=== PATIENT | male | born 1965 | race Caucasian/White ===

== ENCOUNTER 2017-10-18 14:20 | Inpatient (IN) | payer OTHER ==
[~2017-10-18] VITALS: Ht 182.9 cm; Wt 98.0 kg
[2017-10-18] VITALS (8 sets, daily range): BP systolic 111–156; BP diastolic 68–94; PULSE 56–81; RESP 16–18; TEMP 97.7–98.3; O2SAT 57–99
[~2017-10-18 14:20] MED LIST: AMBI10TA PO; ASPI81 PO; RIVA20 PO
[2017-10-18] MEDS ORDERED: IOHEXOL 350 MG/ML 10 ML VIAL (for RAD DIAG) IVCONTRAST ONE (14:21)
--- NOTE | 2017-10-18 14:50 | PD ---
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 TODAY AFTER DOING HIS NORMAL 4.5MILE RUN IN AM, HE STARTED TO FEEL PRESSURE OVER LEFT CHEST RADIATED OVER TO LUE, 7/10 INITIALLY THOUGH NOW HE IS PAIN FREE. NO AGGRAVATING /ALLEVIATING FACTORS. PCP:CAR CARDIO:MAYCO PMHX:AFLUTTER S/P ABLATION IN AUG, AFIB S/P ABLATION IN Sep..OFF XARELTO SINCE THIS PROCEDURE IN 2011. HYPERCHOL PSHX; COLON RESECTION FOR DIVERTICULITIS PFSH Past Medical History Cancer: No Cardiovascular Problems: Yes (A-FIB, A-FLUTTER) Chest Pain: No Diabetes: No Diverticulitis: Yes Endocrine: No Gastrointestinal Disorders: No Glaucoma: No Genitourinary: No Hepatitis: No Hiatal Hernia: No Hypertension: No Immune Disorder: No Musculoskeletal: Yes (HX GOUT) Neurologic: Yes (HX [place] PALSY) Psychiatric: No Reproductive: No Respiratory: No Integumentary: No Thyroid Disease: No Past Surgical History Genitourinary Surgery: Yes (VASECTOMY) Oral Surgery: Yes (WISDOM TEETH EXTRACT.) Pacemaker: No Thoracic Surgery: No Other Surgery: Yes (VASECTOMY IN 1999) Social History Alcohol Use: No Tobacco Use: No Substance Use: No Allergies-Medications (Allergen,Severity, Reaction): Coded Allergies: No Known Allergies (Verified , 10/06/12) Reported Meds & Prescriptions Reported Meds & Active Scripts Active Reported Imodium A-D (Loperamide HCl) 2 Mg Capsule 2 Mg PO Q6H PRN Claritin (Loratadine) 10 Mg Cap 10 Mg PO DAILY Flonase Nasal [place] (Fluticasone Nasal [place]) 50 Mcg/Act [place] 50 Mcg EACH NARE BID Aspirin 325 Mg Tab 325 Mg PO DAILY Review of Systems Except as stated in HPI: all other systems reviewed are Neg General / Constitutional: No: Fever Eyes: No: Visual changes HENT: No: Headaches Cardiovascular: Positive: Chest Pain or Discomfort Respiratory: No: Shortness of Breath Gastrointestinal: No: Abdominal Pain Genitourinary: No: Dysuria Musculoskeletal: No: Pain Skin: No Rash Neurologic: No: Weakness Psychiatric: No: Depression Endocrine: No: Polydipsia Hematologic/Lymphatic: No: Easy Bruising Physical Exam Narrative GENERAL: SKIN: Warm and dry. HEAD: Atraumatic. Normocephalic. EYES: Pupils equal and round. No scleral icterus. No injection or drainage. ENT: No nasal bleeding or discharge. Mucous membranes pink and moist. NECK: Trachea midline. No JVD. CARDIOVASCULAR: Regular rate and rhythm. RESPIRATORY: No accessory muscle use. Clear to auscultation. Breath sounds equal bilaterally. GASTROINTESTINAL: Abdomen soft, non-tender, nondistended. MUSCULOSKELETAL: Extremities without clubbing, cyanosis, or edema. No obvious deformities. NEUROLOGICAL: Awake and alert. No obvious cranial nerve deficits. Motor grossly within normal limits. Five out of 5 muscle strength in the arms and legs. Normal speech. PSYCHIATRIC: Appropriate mood and affect; insight and judgment normal. Data Data Last Documented VS Vital Signs Date Time Temp Pulse Resp B/P (MAP) Pulse Ox O2 Delivery O2 Flow Rate FiO2 10/18/17 15:01 99 18 97 Room Air 10/18/17 14:59 147/86 (106) 156/92 (113) 10/18/17 14:22 97.7 Orders Orders Electrocardiogram (10/18/17 14:46) B-Type Natriuretic Peptide (10/18/17 14:46) Ckmb (Isoenzyme) Profile (10/18/17 14:46) Complete Blood Count With Diff (10/18/17 14:46) Comprehensive Metabolic Panel (10/18/17 14:46) D-Dimer (10/18/17 14:46) Prothrombin Time / Inr (Pt) (10/18/17 14:46) Act Partial Throm Time (Ptt) (10/18/17 14:46) Troponin I (10/18/17 14:46) Lipase (10/18/17 14:46) Chest, Single Ap (10/18/17 14:46) Ecg Monitoring (10/18/17 14:46) Bilateral Bp Monitoring (10/18/17 14:46) Iv Access Insert/Monitor (10/18/17 14:46) Oximetry (10/18/17 14:46) Oxygen Administration (10/18/17 14:46) Ct Pulmonary Angiogram (10/18/17 15:46) CKMB (10/18/17 14:53) CKMB% (10/18/17 14:53) Aspirin Chew (Aspirin Chew) (10/18/17 16:00) Nitroglycerin 2% Oint (Nitroglycerin 2% (10/18/17 16:00) Enoxaparin Inj (Lovenox Inj) (10/18/17 16:00) Iohexol 350 Inj (Omnipaque 350 Inj) (10/18/17 14:21) Admit Order (Ed Use Only) (10/18/17 16:21) Admit To Inpatient (10/18/17 ) Code Status (10/18/17 16:19) Vital Signs (Adult) Q4H (10/18/17 16:19) Activity Bed Rest With Brp (10/18/17 ) Tooth Clerk / Telemetry NATHAN.Q8H (10/18/17 16:19) Notify Dr: Other (10/18/17 ) D5-1/2 Ns + Kcl 20 Meq Inj (D5-1/2 Ns + (10/18/17 18:00) Sodium Chloride 0.9% Flush (Ns Flush) (10/18/17 21:00) Sodium Chloride 0.9% Flush (Ns Flush) (10/18/17 16:30) Aspirin (Aspirin) (10/19/17 09:00) Nitroglycerin Sl (Nitrostat Sl) (10/18/17 16:30) Acetaminophen (Tylenol) (10/18/17 16:30) Alprazolam (Xanax) (10/18/17 16:30) Creatine Kinase (Cpk) (10/18/17 16:19) Creatine Kinase (Cpk) (10/18/17 22:19) Troponin I (10/18/17 16:19) Troponin I (10/18/17 22:19) Magnesium (Mg) (10/18/17 16:19) Basic Metabolic Panel (Bmp) (10/19/17 06:00) Complete Blood Count With Diff (10/19/17 06:00) Act Partial Throm Time (Ptt) (10/18/17 16:19) Lipid Profile (10/19/17 06:00) Echo 2d Comp With Doppler (10/18/17 16:19) Scd Bilateral/Knee High NATHAN.BID (10/18/17 16:19) Inpatient Certification (10/18/17 ) Labs Laboratory Tests Test 10/18/17 14:53 White Blood Count 6.4 TH/MM3 Red Blood Count 4.13 MIL/MM3 Hemoglobin 13.4 GM/DL Hematocrit 39.6 % Mean Corpuscular Volume 95.8 FL Mean Corpuscular Hemoglobin 32.4 PG Mean Corpuscular Hemoglobin Concent 33.8 % Red Cell Distribution Width 13.6 % Platelet Count 188 TH/MM3 Mean Platelet Volume 7.8 FL Neutrophils (%) (Auto) 50.3 % Lymphocytes (%) (Auto) 38.4 % Monocytes (%) (Auto) 9.8 % Eosinophils (%) (Auto) 0.9 % Basophils (%) (Auto) 0.6 % Neutrophils # (Auto) 3.2 TH/MM3 Lymphocytes # (Auto) 2.4 TH/MM3 Monocytes # (Auto) 0.6 TH/MM3 Eosinophils # (Auto) 0.1 TH/MM3 Basophils # (Auto) 0.0 TH/MM3 CBC Comment DIFF FINAL Differential Comment Prothrombin Time 11.1 SEC Prothromb Time International Ratio 1.0 RATIO Activated Partial Thromboplast Time 24.3 SEC D-Dimer Quantitative (PE/DVT) 1.53 MG/L FEU Blood Urea Nitrogen 17 MG/DL Creatinine 0.95 MG/DL Random Glucose 107 MG/DL Total Protein 7.2 GM/DL Albumin 3.8 GM/DL Calcium Level 8.9 MG/DL Alkaline Phosphatase 68 U/L Aspartate Amino Transf (AST/SGOT) 23 U/L Alanine Aminotransferase (ALT/SGPT) 26 U/L Total Bilirubin 0.5 MG/DL Sodium Level 142 MEQ/L Potassium Level 4.6 MEQ/L Chloride Level 107 MEQ/L Carbon Dioxide Level 26.3 MEQ/L Anion Gap 9 MEQ/L Estimat Glomerular Filtration Rate 84 ML/MIN Total Creatine Kinase 248 U/L Creatine Kinase MB 2.8 NG/ML Troponin I 0.17 NG/ML Lipase 294 U/L MDM Medical Decision Making Medical Screen Exam Complete: Yes Emergency Medical Condition: Yes Medical Record Reviewed: Yes Interpretation(s) NSR, 72, NL INERVALS , NONSPEC T WAVE CHANGES, NO STEMI PATTERN Differential Diagnosis STEMI V NONSTEMI V ATYPICAL CP V PNA/PTX V PE Narrative Course OTHERWISE HEALTHY AND WELL FOLLOWED PATIENT BY [employer] LEAKAGE TESTER AND PCP. PATIENT PRESENTED 8 HOURS POST SYMPTOMS SO PLAN ON DOING SERIAL EKG/TROPONIN/CKMB STUDIES X2 IF BOTH NEG I BELIEVE PATIENT IS SAFE ENOUGH TO DISCHARGE AND ENCOURAGE OUTPATIENT RISK STRATIFICATION BY HIS [employer] LEAKAGE TESTER..........AT 1615 PATIENT TROPONIN 0.17 ELEVATED, WELL D DIMER ELEVATION, CT CHEST IS NEG FOR AAA, DISSECTION, PE, OR PERICARDIAL EFFUSION. PATIENT WAS ADMITTED TO DR YENI MCCAULEY. Critical Care Narrative CRITICAL CARE NOTE: With evaluation of the patient, labs, EKG, receipt of radiologic studies, administration of medications, reevaluation the patient and discussion of the patient with the admitting physicians, the total critical care time was [30] minutes. Time to perform other separately billable procedures was not included in the critical care time. Physician Communication Physician Communication DISCUSSED AT LENGTH WITH DR WILLOW JASON [facility] [employer] DIS[employer]AL LEAKAGE TESTER WHO AGREED WITH ASA/ NTG/LOVENOX TREATMENT AND HAS NO FURTHER RECOMMENDATIONS Diagnosis Primary Impression: NONSTEMI Admitting Information Admitting Physician Requests: Admit Phuc Wolff MD Oct 18, 2017 14:50
[2017-10-18] MEDS ORDERED: CLAR10CA3 PO (14:59)
[2017-10-18] MEDS ORDERED: FLUT1SPR5 EACH NARE (14:59)
[2017-10-18] MEDS ORDERED: ASPI-183 PO (14:59)
[2017-10-18] MEDS ORDERED: LOPE-1 PO (14:59)
[2017-10-18 15:28] LABS: AUTOMATED NEUTROPHIL # 3.2 TH/MM3 (1.8-7.7); BASOPHIL % 0.6 % (0.0-2.0); EOSINOPHIL # 0.1 TH/MM3 (0-0.4); EOSINOPHIL % 0.9 % (0.0-4.0); HEMATOCRIT 39.6 % (39.0-51.0); HEMO FLAGS DIFF FINAL; LYMPH % 38.4 % (9.0-44.0); LYMPHOCYTE # 2.4 TH/MM3 (1.0-4.8); MEAN CELL VOLUME 95.8 FL (80.0-100.0); MEAN CORPUSCULAR HEMOGLOBIN 32.4 PG (27.0-34.0); MEAN CORPUSCULAR HGB CONC 33.8 % (32.0-36.0); MONO % 9.8 % (0.0-8.0); NEUT % 50.3 % (16.0-70.0); PLATELET COUNT 188 TH/MM3 (150-450); RED BLOOD COUNT 4.13 MIL/MM3 (4.50-5.90); RED CELL DISTRIBUTION WIDTH 13.6 % (11.6-17.2); WHITE BLOOD COUNT 6.4 TH/MM3 (4.0-11.0)
--- NOTE | 2017-10-18 15:34 | RADRPT ---
EXAM DATE/TIME: 10/18/2017 14:52 [facility] COMPARISON: No previous studies available for comparison. INDICATIONS : Chest pain. MEDICAL HISTORY : a/fib SURGICAL HISTORY : ablation ENCOUNTER: Initial ACUITY: 1 day PAIN SCORE: 2/10 LOCATION: mid sternum FINDINGS: A single view of the chest demonstrates the lungs to be symmetrically aerated without evidence of mas s, infiltrate or effusion. The cardiomediastinal contours are unremarkable. Osseous structures are intact. CONCLUSION: 1. No acute cardiopulmonary disease. Tejinder Locke MD on October 18, 2017 at 15:32 Board Certified Radiologist. This report was verified electronically.
[2017-10-18 15:38] LABS: APTT (PATIENT) 24.3 SEC (24.3-30.1); PROTHROMBIN TIME - PATIENT 11.1 SEC (9.8-11.6)
[2017-10-18 15:42] LABS: ALT (GPT) 26 U/L (12-78); ANION GAP 9 MEQ/L (5-15); AST (GOT) 23 U/L (15-37); BICARBONATE 26.3 MEQ/L (21.0-32.0); BLOOD UREA NITROGEN 17 MG/DL (7-18); CHLORIDE 107 MEQ/L (98-107); GLOMERULAR FILTRATION RATE 84 ML/MIN (>89); POTASSIUM 4.6 MEQ/L (3.5-5.1); SODIUM (NA) 142 MEQ/L (136-145)
[2017-10-18 15:46] LABS: ALKALINE PHOSPHATASE 68 U/L (45-117); CREATINE KINASE 248 U/L (39-308); TOTAL BILIRUBIN ADULT 0.5 MG/DL (0.2-1.0)
[2017-10-18 15:59] LABS: CKMB 2.8 NG/ML (0.5-3.6)
[2017-10-18] MEDS ORDERED: ENOXAPARIN SODIUM 80 MG/0.8 ML SYRINGE SQ ONE (16:00)
[2017-10-18] MEDS ORDERED: NITROGLYCERIN 2% OINT 1 GM PACKET TOP ONE (16:00)
[2017-10-18] MEDS ORDERED: ASPIRIN 81 MG CHEW TAB PO ONE (16:00)
--- NOTE | 2017-10-18 16:23 | RADRPT ---
EXAM DATE/TIME: 10/18/2017 16:06 [facility] COMPARISON: No previous studies available for comparison. INDICATIONS : Patient complains of pressure in chest radiating into left upper extremity. IV CONTRAST: 75 cc Omnipaque 350 (iohexol) IV RADIATION DOSE: 23.11 CTDIvol (mGy) MEDICAL HISTORY : Cardiovascular disease. Diverticulitis. [place] Palsy SURGICAL HISTORY : partial colon removed ENCOUNTER: Initial ACUITY: 1 day PAIN SCALE: 0/10 LOCATION: Left chest TECHNIQUE: Volumetric scanning of the chest was performed using a pulmonary embolism protocol MIP images were re constructed. Using automated exposure control and adjustment of the mA and/or kV according to patien t size, radiation dose was kept as low as reasonably achievable to obtain optimal diagnostic quality images. DICOM format image data is available electronically for review and comparison. Follow-up recommendations for detected pulmonary nodules are based at a minimum on nodule size and pa tient risk factors according to Fleischner Society Guidelines. FINDINGS: PULMONARY ARTERIES: No filling defects are seen in the pulmonary arteries through the segmental level. LUNGS: There is no consolidation or pneumothorax . No concerning pulmonary nodule is visualized. PLEURAE: There is no pleural thickening or pleural effusion. MEDIASTINUM: There is good visualization of the great vessels of the middle mediastinum. No evidence of mediastin al or hilar adenopathy/mass. MUSCULOSKELETAL: There are degenerative changes of the thoracic spine. MISCELLANEOUS: The visualized upper abdominal organs demonstrate no acute abnormality. CONCLUSION: No PE is identified. Additionally, no acute finding is identified to explain the clinical symptoms. Ernesto Andrews MD on October 18, 2017 at 16:19 Board Certified Radiologist. This report was verified electronically.
[2017-10-18] MEDS ORDERED: ALPRAZolam 0.25 MG TAB PO PRN (16:30)
[2017-10-18] MEDS ORDERED: HEPARIN-D5W 25,000 U/250 ML 250 ML IV PRN (16:30)
[2017-10-18] MEDS ORDERED: NITROGLYCERIN 0.4 MG SL 25 TABS/BTL SL PRN (16:30)
[2017-10-18] MEDS ORDERED: SODIUM CHLORIDE 0.9% FLUSH 10 ML FLUSH IV FLUSH PRN (16:30)
--- NOTE | 2017-10-18 17:28 | HHI.HP ---
HPI Service [facility] Hospitalists Primary Care Physician Dirk Wilkins MD, PhD Admission Diagnosis Chest pain Chief Complaint: Chest pain Travel History International Travel<30 Days: No Contact w/Intl Traveler <30 Da: No Traveled to Known Affected Are: No History of Present Illness Mr. Tang is a pleasant 52 y/o male with anxiety, YEN on CPAP, and hx of atrial fibrillation s/p EPS/cryoablation in 2011. He presented to the ED at [facility] on 10/18/17 with complaints of chest pressure in the left chest with some tingling/numbness in the inside aspect of the LUE that began after his regular 4.5mile morning run. He states that after his run he got in the shower and had some left sided chest discomfort which lasted only a few seconds. Denies any noted nausea/vomiting, SOB, palpitations, or diaphoresis. He is not any any anticoagulants or cardiac medications. He has noted that his running times have slowed down in the last few months. In the ED the pts troponin was elevated at 0.17. His EKGs without significant ST changes. Pts D-dimer was elevated in the ED and CTA was performed but was negative for PE. He follows with Dr. Wing Morrison and he has had Holter monitors performed annually since his ablation without any evidence of A. fib. Review of Systems Constitutional: DENIES: Fever, Chills Eyes: DENIES: Vision loss Ears, nose, mouth, throat: DENIES: Hearing loss Respiratory: DENIES: Cough, Shortness of breath Cardiovascular: COMPLAINS OF: Chest pain, DENIES: Palpitations, Dyspnea on Exertion, Lower Extremity Edema Gastrointestinal: DENIES: Abdominal pain, Constipation, Diarrhea, Nausea, Vomiting Genitourinary: DENIES: Dysuria Musculoskeletal: DENIES: Back pain Integumentary: DENIES: Rash Neurologic: DENIES: Headache Psychiatric: DENIES: Confusion Past Family Social History Past Medical History YEN, uses CPAP Anxiety Hx of diverticulitis Hx of atrial fibrillation/atrial flutter s/p EPS[place]cryo[place] [address] Fam Short term memory issues Allergic rhinitis Impaired fasting glucose Past Surgical History Right knee arthroscopy Sigmoid colectomy Vasectomy Reported Medications Imodium A-D (Loperamide HCl) 2 Mg Capsule 2 Mg PO Q6H PRN Claritin (Loratadine) 10 Mg Cap 10 Mg PO DAILY Flonase Nasal [place] (Fluticasone Nasal [place]) 50 Mcg/Act [place] 50 Mcg EACH NARE BID Aspirin 325 Mg Tab 325 Mg PO DAILY Allergies: Coded Allergies: No Known Allergies (Verified , 10/06/12) Family History Mother with hx of breast and ovarian cancer Social History Hx of tobacco use, used to smoke cigars, quit in 1989, and used to use chewing tobacco, quit in 1989 Hx of regular alcohol use, 4-5 beers 3-4 times per week Pt is and lives with spouse 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 HEENT: Atraumatic. Normocephalic. No temporal or scalp tenderness. No scleral icterus. Airway patent. NECK: Trachea midline, supple, nontender. CARDIO: Regular RESP: CTA bilaterally. No wheezes, rales, or rhonchi. ABD: +BS, soft, non-tender, nondistended. EXT: Extremities without clubbing, cyanosis, or edema. NEURO: Awake and alert. Motor and sensory grossly within normal limits. Normal speech. Laboratory Laboratory Tests Test 10/18/17 14:53 White Blood Count 6.4 Red Blood Count 4.13 Hemoglobin 13.4 Hematocrit 39.6 Mean Corpuscular Volume 95.8 Mean Corpuscular Hemoglobin 32.4 Mean Corpuscular Hemoglobin Concent 33.8 Red Cell Distribution Width 13.6 Platelet Count 188 Mean Platelet Volume 7.8 Neutrophils (%) (Auto) 50.3 Lymphocytes (%) (Auto) 38.4 Monocytes (%) (Auto) 9.8 Eosinophils (%) (Auto) 0.9 Basophils (%) (Auto) 0.6 Neutrophils # (Auto) 3.2 Lymphocytes # (Auto) 2.4 Monocytes # (Auto) 0.6 Eosinophils # (Auto) 0.1 Basophils # (Auto) 0.0 CBC Comment DIFF FINAL Differential Comment Prothrombin Time 11.1 Prothromb Time International Ratio 1.0 Activated Partial Thromboplast Time 24.3 D-Dimer Quantitative (PE/DVT) 1.53 Blood Urea Nitrogen 17 Creatinine 0.95 Random Glucose 107 Total Protein 7.2 Albumin 3.8 Calcium Level 8.9 Alkaline Phosphatase 68 Aspartate Amino Transf (AST/SGOT) 23 Alanine Aminotransferase (ALT/SGPT) 26 Total Bilirubin 0.5 Sodium Level 142 Potassium Level 4.6 Chloride Level 107 Carbon Dioxide Level 26.3 Anion Gap 9 Estimat Glomerular Filtration Rate 84 Total Creatine Kinase 248 Creatine Kinase MB 2.8 Troponin I 0.17 Lipase 294 Result Diagram: 10/18/17 1453 10/18/17 [address] Angiography 10/18/17 1546 Signed Impressions: Service Date/Time: Wednesday, October 18, 2017 16:06 - CONCLUSION: No PE is identified. Additionally, no acute finding is identified to explain the clinical symptoms. Ernesto Andrews MD Chest X-Ray 10/18/17 1446 Signed Impressions: Service Date/Time: Wednesday, October 18, 2017 14:52 - CONCLUSION: 1. No acute cardiopulmonary disease. Tejinder Locke MD Septic Shock Reassessment Heart: Regular rate and rhythm Lungs: Clear Skin: Warm Caprini VTE Risk Assessment Caprini VTE Risk Assessment: No/Low Risk (score <= 1) Caprini Risk Assessment Model Point Value = 1 Point Value = 2 Point Value = 3 Point Value = 5 Age 41-60 Minor surgery BMI > 25 kg/m2 Swollen legs Varicose veins or History of unexplained or recurrent spontaneous Oral contraceptives or hormone replacement Sepsis (< 1 month) Serious lung disease, including pneumonia (< 1 month) Abnormal pulmonary function Acute myocardial infarction Congestive heart failure (< 1 month) History of inflammatory bowel disease Medical patient at bed rest Age 61-74 Arthroscopic surgery Major open surgery (> 45 min) Laparoscopic surgery (> 45 min) Malignancy Confined to bed (> 72 hours) Immobilizing plaster cast Central venous access Age >= 75 History of VTE Family history of VTE Factor V Leiden Prothrombin [id number] Lupus anticoagulant Anticardiolipin antibodies Elevated serum homocysteine Heparin-induced thrombocytopenia Other congenital or acquired thrombophilia Stroke (< 1 month) Elective arthroplasty Hip, pelvis, or leg fracture Acute spinal cord injury (< 1 month) Prophylaxis Regimen Total Risk Factor Score Risk Level Prophylaxis Regimen 0-1 Low Early ambulation 2 Moderate Order ONE of the following: *Sequential Compression Device (SCD) *Heparin 5000 units SQ BID 3-4 Higher Order ONE of the following medications: *Heparin 5000 units SQ TID *Enoxaparin/Lovenox 40 mg SQ daily (WT < 150 kg, CrCl > 30 mL/min) *Enoxaparin/Lovenox 30 mg SQ daily (WT < 150 kg, CrCl > 10-29 mL/min) *Enoxaparin/Lovenox 30 mg SQ BID (WT < 150 kg, CrCl > 30 mL/min) AND/OR *Sequential Compression Device (SCD) 5 or more Highest Order ONE of the following medications: *Heparin 5000 units SQ TID (Preferred with Epidurals) *Enoxaparin/Lovenox 40 mg SQ daily (WT < 150 kg, CrCl > 30 mL/min) *Enoxaparin/Lovenox 30 mg SQ daily (WT < 150 kg, CrCl > 10-29 mL/min) *Enoxaparin/Lovenox 30 mg SQ BID (WT < 150 kg, CrCl > 30 mL/min) AND *Sequential Compression Device (SCD) Assessment and Plan Problem List: (1) Chest pain ICD Codes: R07.9 - Chest pain, unspecified Plan: - Pt is a 52 y/o male with anxiety, YEN on CPAP, and hx of atrial fibrillation s /p EPS/cryoablation in 2011. - He presented to the ED at [facility] on 10/18/17 with complaints of chest pressure in the left chest with some tingling/numbness in the inside aspect of the LUE that began after his regular 4.5mile morning run. - In the ED the pts troponin was elevated at 0.17. - His EKGs without significant ST changes. - Pts D-dimer was elevated in the ED and CTA was performed but was negative for PE. - He follows with Dr. Wing Morrison and he has had Holter monitors performed annually since his ablation without any evidence of A. fib. - Serial CE and EKGs - ASA - Heparin gtt - Nitro PRN - IVF - FLP in AM - Cardiology consulted - NPO after MN - Xanax PRN - Supportive care - DVT prophylaxis (2) Elevated troponin ICD Codes: R74.8 - Abnormal levels of other serum enzymes Status: Acute Plan: - See above (3) YEN (obstructive sleep apnea) ICD Codes: G47.33 - Obstructive sleep apnea (adult) (pediatric) Plan: - on CPAP (4) Anxiety ICD Codes: F41.9 - Anxiety disorder, unspecified Plan: - Xanax PRN Physician Certification 2 Midnight Certification Type: Admission for Inpatient Services Order for Inpatient Services The services are ordered in accordance with Medicare regulations or non- Medicare payer requirements, as applicable. In the case of services not specified as inpatient-only, they are appropriately provided as inpatient services in accordance with the 2-midnight benchmark. Estimated LOS (days): 2 2 days is the estimated time the patient will need to remain in the hospital, assuming treatment plan goals are met and no additional complications. Post-Hospital Plan: Home Abbi Clark Oct 18, 2017 17:28
[2017-10-18] MEDS ORDERED: D5-1/2 NS + KCL 20 MEQ INJ 1,000 ML IV SCH (18:00)
[2017-10-18] MEDS ORDERED: SODIUM CHLORIDE 0.9% FLUSH 10 ML FLUSH IV FLUSH SCH (21:00)
--- NOTE | 2017-10-18 21:23 | HHI.PR ---
Addendum to Inpatient Note Addendum Reason: Additional Documentation Additional Information Came by to see pt in room re: possible Non-STEMI. Reviewed 2 prior cath reports with him and he reports negative coronary CTA in interim as well. Gave info on possible false + D-dimer and other reasons for mild trop I elevation. Possibly Prinzmetal's angina. Will continue r/o protocol and cardiology consulted. Gave one extra xanax as he is a bit anxious. Dirk Wilkins MD PhD Oct 18, 2017 21:23
[2017-10-18] MEDS ORDERED: ALPRAZolam 0.25 MG TAB PO ONE (21:30)
[2017-10-18 23:54] LABS: HEMATOCRIT 38.6 % (39.0-51.0); MEAN CELL VOLUME 95.8 FL (80.0-100.0); MEAN CORPUSCULAR HEMOGLOBIN 31.9 PG (27.0-34.0); MEAN CORPUSCULAR HGB CONC 33.3 % (32.0-36.0); PLATELET COUNT 192 TH/MM3 (150-450); RED BLOOD COUNT 4.03 MIL/MM3 (4.50-5.90); RED CELL DISTRIBUTION WIDTH 13.4 % (11.6-17.2); REVIEW FLAG FINAL; WHITE BLOOD COUNT 6.4 TH/MM3 (4.0-11.0)
[2017-10-19] VITALS (11 sets, daily range): BP systolic 118–130; BP diastolic 69–79; PULSE 56–62; RESP 16–20; TEMP 97.9–98.2; O2SAT 97–99
[2017-10-19] MEDS ORDERED: HEPARIN 25,000 UNITS-D5W 250 ML - PREMIX IV PRN
[2017-10-19 00:05] LABS: APTT (PATIENT) 28.6 SEC (24.3-30.1)
[2017-10-19 00:29] LABS: MAGNESIUM 2.4 MG/DL (1.5-2.5)
[2017-10-19] MEDS: ACETAMINOPHEN 500 MG CPLT PO PRN ×2 (02:37→16:32)
[2017-10-19 06:45] LABS: BASOPHIL % 0.6 % (0.0-2.0); EOSINOPHIL # 0.1 TH/MM3 (0-0.4); EOSINOPHIL % 2.1 % (0.0-4.0); HEMO FLAGS DIFF FINAL; LYMPH % 37.8 % (9.0-44.0); LYMPHOCYTE # 2.3 TH/MM3 (1.0-4.8); MEAN CELL VOLUME 95.9 FL (80.0-100.0); MEAN CORPUSCULAR HGB CONC 33.4 % (32.0-36.0); MONO % 9.2 % (0.0-8.0); NEUT % 50.3 % (16.0-70.0); PLATELET COUNT 173 TH/MM3 (150-450); RED BLOOD COUNT 3.97 MIL/MM3 (4.50-5.90); RED CELL DISTRIBUTION WIDTH 13.5 % (11.6-17.2)
[2017-10-19 07:12] LABS: BICARBONATE 24.7 MEQ/L (21.0-32.0); POTASSIUM 3.7 MEQ/L (3.5-5.1)
[2017-10-19 07:17] LABS: HDL CHOLESTEROL 114.5 MG/DL (40.0-60.0)
[2017-10-19 07:21] LABS: APTT (PATIENT) 34.5 SEC (24.3-30.1)
--- NOTE | 2017-10-19 07:41 | PD.CONS ---
HPI Service Cardiology Consult Requested By Dr. Taylor Reason for Consult Chest pain Primary Care Physician Dirk Wilkins MD, PhD History of Present Illness 52-year-old male with a past medical history of anxiety, YEN, and history of atrial fibrillation s/p ablation in 2011 who presented for chest pain. The patient states that he is normally quite active and runs 4 or 5 miles per day. He states that over the past 2 weeks his mile time has dropped by about 2 minutes and feels like he is not able to keep pace like he previously did. Yesterday after his run and he began having left-sided chest pain that he describes as a sharp soreness. He had a chest CTA which was negative. His troponin was found to be elevated at 0.17, although no ST changes were noted on the EKG. The patient would like to proceed with cardiac catheterization today. (Juan Celestin) Review of Systems Consitutional: DENIES: Fatigue, Fever, Chills, Weight gain, Weight loss Respiratory: DENIES: See HPI, Cough, Snoring, Shortness of breath, Wheezing, Sputum production Cardiovascular: COMPLAINS OF: See HPI (Juan Celestin) Past Family Social History Allergies: Coded Allergies: No Known Allergies (Verified , 10/06/12) Past Medical History YEN, uses CPAP Anxiety Hx of diverticulitis Hx of atrial fibrillation/atrial flutter s/p EPS[place] [address] Fam Short term memory issues Allergic rhinitis Impaired fasting glucose Past Surgical History Right knee arthroscopy Sigmoid colectomy Vasectomy Reported Medications Reported Meds & Active Scripts Active Reported Imodium A-D (Loperamide HCl) 2 Mg Capsule 2 Mg PO Q6H PRN Claritin (Loratadine) 10 Mg Cap 10 Mg PO DAILY Flonase Nasal [place] (Fluticasone Nasal [place]) 50 Mcg/Act [place] 50 Mcg EACH NARE BID Aspirin 325 Mg Tab 325 Mg PO DAILY Active Ordered Medications Current Medications Medications (Trade) Dose Ordered Sig/Cliff Route Start Time Stop Time Status Last Admin Potassium Chloride/Dextrose/ Sod Cl 1,000 ml @ 75 mls/hr [id number] IV 10/18/17 18:00 10/18/17 20:30 (NS Flush) 2 ml BID IV FLUSH 10/18/17 21:00 10/18/17 20:34 (NS Flush) 2 ml UNSCH PRN IV FLUSH 10/18/17 16:30 (Aspirin) 325 mg DAILY PO 10/19/17 09:00 (Nitrostat Sl) 0.4 mg Q5M PRN SL 10/18/17 16:30 (Tylenol) 500 mg Q4H PRN PO 10/18/17 16:30 10/19/17 02:37 (Xanax) 0.25 mg TID PRN PO 10/18/17 16:30 10/18/17 20:30 (Claritin) 10 mg DAILY PO 10/19/17 09:00 Heparin Sodium/ Dextrose 250 ml @ 10 mls/hr TITRATE PRN IV 10/19/17 00:00 10/19/17 00:35 Family History Mother with hx of breast and ovarian cancer Social History Hx of tobacco use, used to smoke cigars, quit in 1989, and used to use chewing tobacco, quit in 1989 Hx of regular alcohol use, 4-5 beers 3-4 times per week Pt is and lives with spouse 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[place] [employer] (Juan Celestin) Physical Exam Vital Signs Vital Signs Date Time Temp Pulse Resp B/P (MAP) Pulse Ox O2 Delivery O2 Flow Rate FiO2 10/19/17 04:00 14 10/19/17 03:00 58 10/19/17 02:00 58 10/19/17 01:00 56 10/19/17 00:00 58 10/18/17 23:00 57 16 111/68 (82) 97 10/18/17 23:00 56 10/18/17 22:00 60 10/18/17 21:00 64 10/18/17 20:00 62 16 125/74 (91) 57 10/18/17 20:00 66 10/18/17 18:45 98.2 65 18 125/74 (91) 96 10/18/17 16:42 98.3 63 18 145/94 (111) 98 Room Air 10/18/17 15:01 99 18 97 Room Air 10/18/17 14:59 98 Room Air 10/18/17 14:59 71 147/86 (106) 156/92 (113) 10/18/17 14:59 18 98 Room Air 10/18/17 14:22 97.7 81 17 149/90 (109) 99 Room Air Physical Exam GENERAL: Well-developed well-nourished. In no acute distress. NECK: No carotid bruits. No JVD. CARDIOVASCULAR: Regular rate and rhythm. No murmur appreciated. RESPIRATORY: No accessory muscle use. Clear to auscultation. Breath sounds equal bilaterally. MUSCULOSKELETAL: No clubbing or cyanosis. No edema. NEUROLOGICAL: Awake and alert. Normal speech. Laboratory Laboratory Tests Test 10/18/17 14:53 10/18/17 23:20 10/19/17 05:42 White Blood Count 6.4 6.4 6.0 Red Blood Count 4.13 4.03 3.97 Hemoglobin 13.4 12.9 12.7 Hematocrit 39.6 38.6 38.0 Mean Corpuscular Volume 95.8 95.8 95.9 Mean Corpuscular Hemoglobin 32.4 31.9 32.0 Mean Corpuscular Hemoglobin Concent 33.8 33.3 33.4 Red Cell Distribution Width 13.6 13.4 13.5 Platelet Count 188 192 173 Mean Platelet Volume 7.8 7.6 7.6 Neutrophils (%) (Auto) 50.3 50.3 Lymphocytes (%) (Auto) 38.4 37.8 Monocytes (%) (Auto) 9.8 9.2 Eosinophils (%) (Auto) 0.9 2.1 Basophils (%) (Auto) 0.6 0.6 Neutrophils # (Auto) 3.2 3.0 Lymphocytes # (Auto) 2.4 2.3 Monocytes # (Auto) 0.6 0.6 Eosinophils # (Auto) 0.1 0.1 Basophils # (Auto) 0.0 0.0 CBC Comment DIFF FINAL DIFF FINAL Differential Comment Prothrombin Time 11.1 Prothromb Time International Ratio 1.0 Activated Partial Thromboplast Time 24.3 28.6 34.5 D-Dimer Quantitative (PE/DVT) 1.53 Blood Urea Nitrogen 17 12 Creatinine 0.95 0.84 Random Glucose 107 117 Total Protein 7.2 Albumin 3.8 Calcium Level 8.9 8.4 Alkaline Phosphatase 68 Aspartate Amino Transf (AST/SGOT) 23 Alanine Aminotransferase (ALT/SGPT) 26 Total Bilirubin 0.5 Sodium Level 142 140 Potassium Level 4.6 3.7 Chloride Level 107 105 Carbon Dioxide Level 26.3 24.7 Anion Gap 9 10 Estimat Glomerular Filtration Rate 84 96 Total Creatine Kinase 248 189 152 Creatine Kinase MB 2.8 Troponin I 0.17 0.13 0.12 B-Type Natriuretic Peptide 13 Lipase 294 Magnesium Level 2.4 Triglycerides Level 58 Cholesterol Level 194 LDL Cholesterol 68 HDL Cholesterol 114.5 Cholesterol/HDL Ratio 1.69 (Juan Celestin) Result Diagram: 10/19/17 0542 10/19/17 [address] Angiography 10/18/17 1546 Signed Impressions: Service Date/Time: Wednesday, October 18, 2017 16:06 - CONCLUSION: No PE is identified. Additionally, no acute finding is identified to explain the clinical symptoms. Ernesto Andrews MD Chest X-Ray 10/18/17 1446 Signed Impressions: Service Date/Time: Wednesday, October 18, 2017 14:52 - CONCLUSION: 1. No acute cardiopulmonary disease. Tejinder Locke MD (Juan Celestin) Assessment and Plan Assessment and Plan 52-year-old male with a past medical history of anxiety, YEN, and history of atrial fibrillation s/p ablation in 2011 who presented for chest pain NSTEMI: Presented with chest pain and had serial troponins elevated in the indeterminate range. We will proceed with cardiac catheterization this morning for definitive evaluation of possible underlying CAD. Check echocardiogram. A fib s/p ablation 2011: Currently NSR. Discussed Condition With Dr. Goldstein (Juan Celestin) Assessment and Plan AGREE WITH ABOVE discussed options with patient exertional chest pain. positive troponin. ekg without ischemic changes, but symptoms resolved. active runner and has had progressive symptoms over last two weeks (his average pace has decreased almost 2 mins per mile) Proceed with cardiac catheterization for definitive diagnosis. NPO DC heparin gtt at 9 am. 2d echo (Chalo Goldstein MD) Juan Celestin Oct 19, 2017 07:41 Chlao Goldstein MD Oct 19, 2017 07:46
[2017-10-19] MEDS ORDERED: ASPIRIN 325 MG TAB PO SCH (09:00)
[2017-10-19] MEDS ORDERED: LORATADINE 10 MG TAB PO SCH (09:00)
[2017-10-19] MEDS ORDERED: HEPARIN-NS/PF INJ 1,000 ML ONE (10:32)
[2017-10-19] MEDS ORDERED: MIDAZOLAM HCL 5 MG/5 ML VIAL ONE (10:34)
[2017-10-19] MEDS ORDERED: NITROGLYCERIN INJ 5 ML ONE (10:53)
[2017-10-19] MEDS ORDERED: HEPARIN SODIUM - IV 10,000 UNITS/10 ML VIAL ONE (10:53)
--- NOTE | 2017-10-19 11:14 | CATHPROC ---
[facility] HIS Report Study Information Study Number Admission Scheduled Start Study Start [id number] Oct 18 2017 4:23PM 10/19/2017 Oct 19 2017 10:28AM [place] Service Cardiac Catheterization Admit Source Facility Department Emergency department [facility] - Pediatric Physician Assistant Physician and Clinical Staff Initial Chalo Alex Range EcologistAbbi Youssef,RENEE Range EcologistAustin Casas,RENEE Recorder Donte Dumont,RT(R) Sophia Naranjo,RT(R) (BS) Procedures Performed Procedure Location (Site) Vessel Name Coronary Angiograms LCA Left Coronary Coronary Angiograms RCA Right Coronary Equipment Time Delivery Sales Worker Description Size Mfg Part Number Used/Scraped TRANSDUCER, TRUWAVE [id number] 10:42 FARIAS ANGELO * Used W/STOCKCOCK *[id number] [id number] *[id number] [id number] *[id number] 10:42 [employer] PACK, CCL CUSTOM * Used *[id number] 10:42 [employer] SUPPORT, ARTERIAL ADULT 38860 *[id number] Used [id number] 10:42 [employer]ster PACER PEN, SKIN DUAL W/ RULER * Used *[id number] BAND, RADIAL COMPRESSION TR [id number] 10:42 [employer] MEDICAL 24CM Used SHORT 24 *[id number] SHEATH, FR6 RADIAL PRELUDE 10:42 Class Messenger FR 6 [id number] Used EASE 11CM [id number] 10:42 [employer] Messenger WIRE, EXCHANGE 260CM 3MMJ 260CM Used *[id number] 10:42 NYCOMED OMNIPAQUE, 350 MG, 150ML 150ML [id number] Used [id number] 10:42 [email or web address] BLANKET,WARM AIR CCL * Used *[id number] History: Allergies Allergy Reaction No Known Allergies History: Risk Factors Family History of Hypertension Dyslipidemia Previous [place] Previous Heart Failure Premature CAD No No Yes No No Prior Valve Prior PCI Prior CABG Surgery No No No Cerebrovascular Peripheral Artery Chronic Lung On Dialysis Diabetes Disease Disease Disease No No No No No History: Other Current Smoker No Labs Hgb (g/dl) Hct (%) WBC (l/cumm) Platelets (thousands) 11.60-17.00 35.00-51.00 4.00-11.00 150.00-450.00 12.7 38 6 173 Glucose (mg/dl) BUN (mg/dl) Creatinine (mg/dl) BUN:Creatinine (1:x) 74.00-106.00 7.00-18.00 0.50-1.30 10.00-20.00 117 12 0.8 15 Na (meq/l) K (meq/l) 136.00-145.00 3.50-5.10 140 3.7 Troponin I (ng/ml) CPK-MB (ng/ML) 0.02-0.05 0.50-3.60 0.13 Not Drawn Medication Medication Total Dose (Bolus/Oral) Medication Total Dosage/Unit 1% XYLOCAINE 5 mL FENTANYL 100 mcg HEPARIN 3000 units NTG (IC) 200 mcg VERSED 3 mg Medications (Bolus/Oral) Medication Time Given Dosage/Unit Administered By Reason 10/19/2017 10:50:52 VERSED 2 mg Christi Iqbalfer AM 2 mg VERSED given in lab by Abbi Iqbal RN in Left Antecubital via Peripheral IV. Ordered by Chalo Qiu. 10/19/2017 10:51:11 FENTANYL 50 mcg Christi Iqbalfer AM 50 mcg FENTANYL given in lab by Abbi Iqbal RN via Peripheral IV. Ordered by Chalo Goldstein. 10/19/2017 10:55:43 VERSED 1 mg Christi Iqbalfer AM 1 mg VERSED given in lab by Abbi Iqbal RN via Peripheral IV. Ordered by Chalo Goldstein. 10/19/2017 10:56:12 FENTANYL 50 mcg Christi Iqbalfer AM 50 mcg FENTANYL given in lab by Abbi Iqbal RN via Peripheral IV. Ordered by Chalo Goldstein. 10/19/2017 10:56:31 1% XYLOCAINE 5 mL Chalo Goldstein AM 5 mL 1% XYLOCAINE given in lab by Chalo Goldstein in Right Radial via Subcutaneous. Ordered by Chalo Goldstein. 10/19/2017 10:57:13 NTG (IC) 200 mcg Chalo Goldstein AM 200 mcg NTG (IC) given in lab by Chalo Goldstein via Intra-arterial. Ordered by Chalo Goldstein. 10/19/2017 10:57:28 HEPARIN 3000 units Abbi Iqbal AM 3000 units HEPARIN given in lab by Abbi Iqbal RN in Left Antecubital via Peripheral IV. Ordered by Chalo Goldstein. Medication (Drip) Medication Time Given Dosage/Unit Concentration/Unit Diluent (ml) Solution 10/19/2017 10:39:14 IV Solutions 0 mL (IV) 500 NaCl .9 AM IV Solutions given in lab by Chalo Goldstein in Left Antecubital via Peripheral IV. Pump/Drip Flow = 2 0 ml/hr using NaCl .9. Ordered by Chalo Goldstein. Initial Case Assessment Cardiovascular HR Rhythm NIBP Chest Pain 60 sr 139/95 0 Edema Present Skin color Skin None Normal Warm Dry Circulatory - Right Pulses Dorsalis Pedis Femoral Radial 3 3 3 Scale (0,1,2,3,4,d) Scale (0,1,2,3,4,d) Neurological State Oriented to time-place- Alert Moves all extremities person Respiration - General Respiration Rate SpO2 (%) O2 (lpm) (B/min) 18 100 0 Final Case Assessment Cardiovascular HR Rhythm NIBP Chest Pain 60 sr 119/83 0 Edema Present Skin color Skin None Normal Warm Dry Circulatory - Right Pulses Dorsalis Pedis Femoral Radial 3 3 3 Scale (0,1,2,3,4,d) Scale (0,1,2,3,4,d) Neurological State Oriented to time-place- Alert Moves all extremities person Respiration - General Respiration Rate SpO2 (%) O2 (lpm) (B/min) 18 98 0 Chronological Log Time Study Chronological Log 10:28:41 Patient arrived via Bed. Positive Allenst test performed by Donte Dumont 10:28:43 Patient Name, D.O.B, / Armband Verified By R.N. 10:28:44 Consent signed by the physician and the patient and verified by the Pediatric Physician Assistant staff. 10:29:52 Pre-op and post- op instructions given; patient acknowledges understanding of instructions. 10:30:16 Verbal Stimulation=2 Physical Stimulation=2 Airway=2 Respiration=2 TOTAL=8. (0=absent, 1=li mited, 2=present) 10:30:28 Presedation assessment performed by Pediatric Physician Assistant RN. 10:30:31 Patient has been NPO for More than 6Hrs. Vitals capture started with the following parameters, Patient=Adult, Interval=5 min, Initial Pr gbwafa=703 mmHg, 10:35:03 Deflation Rate=5 mmHg, Cuff placed on Right Arm 10:35:43 HR=59 bpm, RKYA=073/95 mmhg, ZbY1=230.0 %, Resp=22 B/min, White=2 10:38:29 Skin Breakdown-none present per patient. 10:38:41 A # 20 IV was noted in the Antecubital (left). Grade = 0 IV Solutions given in lab by Chalo Goldstein in Left Antecubital via Peripheral IV. Pump/Drip Fl ow = 20 ml/hr using NaCl 10:39:14 .9. Ordered by Chalo Goldstein. 10:39:33 History and physical on the chart or being dictated. 10:39:36 Reference ECG taken Assessment: Initial Case, HR=60 BPM, Rhythm=sr, UQNZ=898/95 mmhg, Chest Pain=0, Edema=None, Col or=Normal, Skin = Warm, Dry 10:39:38 Right Pulses: Balwinder Ped=3, Femoral=3, Radial=3 Neurological: State=Alert, Ox3, LEOS Respiration: Resp=18 B/min, VyL1=743 %, O2=0 lpm 10:40:12 Right groin and right radial prepped with 2% chlorhexidine, and draped after a 3 min. waiti ng time. 10:40:38 HR=59 bpm, YWPF=192/92 mmhg, SqD6=370.0 %, Resp=17 B/min, White=2 10:45:37 HR=59 bpm, RZNG=301/97 mmhg, Resp=19 B/min, White=2 10:45:41 MD arrived. 10:49:40 Pressure channel 1 zeroed. 10:50:36 HR=61 bpm, PAUS=186/97 mmhg, Resp=24 B/min, White=2 10:50:52 2 mg VERSED given in lab by Abbi Iqbal, RENEE in Left Antecubital via Peripheral IV. Orde red by Chalo Goldstein. 10:51:11 50 mcg FENTANYL given in lab by Abbi Iqbal, RENEE via Peripheral IV. Ordered by St suman Goldstein. Time Out. Correct patient, correct procedure, correct physician, power injector not loaded with contrast with surgical 10:55:06 team present. Time Out Concurred by MD and individual staff in procedure. Not loaded at this ti me. 10:55:35 Presedation re-assessment performed by Pediatric Physician Assistant RN. 10:55:36 Case Start 10:55:38 Verbal Stimulation=2 Physical Stimulation=2 Airway=2 Respiration=2 TOTAL=8. (0=absent, 1=li mited, 2=present) 10:55:39 HR=60 bpm, YJOO=304/88 mmhg, Resp=19 B/min, White=2 10:55:43 1 mg VERSED given in lab by Abbi Iqbal, RENEE via Peripheral IV. Ordered by Darian Goldstein 10:56:12 50 mcg FENTANYL given in lab by Abbi Iqbal, RENEE via Peripheral IV. Ordered by St suman Goldstein. 10:56:31 5 mL 1% XYLOCAINE given in lab by Chalo Goldstein in Right Radial via Subcutaneous. Ordered by Chalo Goldstein. 10:56:45 Access site was right Radial Artery. A SHEATH, FR6 RADIAL PRELUDE EASE 11CM FR 6 was advanced into the Radial (right) using the Perc utaneous 10:57:00 technique. 10:57:13 200 mcg NTG (IC) given in lab by Chalo Goldstein via Intra-arterial. Ordered by Charley Goldstein en. 3000 units HEPARIN given in lab by Abbi Iqbal, RENEE in Left Antecubital via Peripheral IV. O rdered by Triston 10:57:28 Chalo. A JR 5.0 INFINITI CATHETER FR 5 was advanced over a wire. OMNIPAQUE, 350 MG, 150ML 150ML was us ed for 10:57:56 injections. Recorded Pressure: LV, HR=66, Condition=Condition 1 10:58:53 (Left Ventricle) LV 138/-4/2 Recorded Pressure: LV, Ao, HR=65, Condition=Condition 1 10:58:56 (Left Ventricle) LV 136/-2/9, (Aorta) Ao 115/62/84 Recorded Pressure: Ao, HR=66, Condition=Condition 1 10:59:38 (Aorta) Ao 111/77/95 10:59:51 The RCA was injected and visualized at various angles. OMNIPAQUE, 350 MG, 150ML 150ML use d. After removing the current catheter a JL 3.5 INFINITI CATHETER FR 5 was advanced over a WIRE, EXCHANGE 260CM 11:00:15 3MMJ 260CM. 11:00:44 HR=64 bpm, AWUV=793/64 mmhg, SpO2=95.0 %, Resp=17 B/min, White=2 11:02:27 The LCA was injected and visualized at various angles. OMNIPAQUE, 350 MG, 150ML 150ML use d. 11:04:41 Catheter was removed OTW. 11:05:01 Case End Assessment: Final Case, HR=60 BPM, Rhythm=sr, JDBV=271/83 mmhg, Chest Pain=0, Edema=None, Colerain r=Normal, Skin = Warm, Dry 11:05:27 Right Pulses: Balwinder Ped=3, Femoral=3, Radial=3 Neurological: State=Alert, Ox3, LEOS Respiration: Resp=18 B/min, SpO2=98 %, O2=0 lpm 11:05:37 HR=59 bpm, AWIN=172/83 mmhg, SpO2=96.0 %, Resp=19 B/min, White=2 11:06:09 No case complications noted. 11:06:11 Cine recording checked. 11:06:13 Bedside Report will be given. 11:06:17 Contrast Scanned 11:10:36 HR=57 bpm, YGIT=681/85 mmhg, SpO2=98.0 %, Resp=14 B/min, White=2 11:11:17 Patient moved to stretcher 11:11:37 Vitals capture stopped. Radial Compression Device Used. 96 mLs of air placed in BAND, RADIAL COMPRESSION TR SHORT 24 2 4CM. Affected 11:11:51 hand 15 % O2 saturation. End Study - Contrast Media Used In Study Contrast Total Opened (mL) Total Used (mL) Total Wasted (mL) Omnipaque 45 45 0 End Study - Maximum Contrast Load Max Contrast Load (mL) 612.5 End Study - Radiation Exposure Fluoro Time (minutes) 1.8 End Study - Patient Disposition Complications Transferred To No Telemetry Bed
[2017-10-19] MEDS ORDERED: oxyCODONE/ACETAMINOPHEN 5 MG/325 MG TAB PO PRN (11:15)
[2017-10-19] MEDS ORDERED: BACITRACIN OINT 0.9 GM PKT TOP ONE (11:15)
[2017-10-19] MEDS ORDERED: IOHEXOL 350 MG/ML 50 ML BTL (for Cath Lab) OTHER ONE (11:23)
--- NOTE | 2017-10-19 11:25 | ECHRPT ---
Indication: cp CONCLUSIONS The left ventricular systolic function is low normal with an estimated ejection fraction in the rang e of 50- 55%. Normal left ventricular size. Mild concentric left ventricular hypertrophy. Ynmot-ed-kefe mitral valve regurgitation. Structurally normal mitral valve. There is mild tricuspid valve regurgitation. The estimated pulmonary arterial pressure is 47.9 mmHg. BP: / HR: Rhythm: MEASUREMENTS (Male / Female) Normal Values Technical Quality:Fair 2D ECHO LV Diastolic Diameter PLAX 5.4 cm 4.2 - 5.9 / 3.9 - 5.3 cm LV Systolic Diameter PLAX 4.3 cm IVS Diastolic Thickness 1.4 cm 0.6 - 1.0 / 0.6 - 0.9 cm LVPW Diastolic Thickness 1.2 cm 0.6 - 1.0 / 0.6 - 0.9 cm LV Relative Wall Thickness 0.5 RV Internal Dim ED PLAX 3.3 cm M-MODE Aortic Root Diameter MM 3.2 cm LA Systolic Diameter MM 4.3 cm LA Ao Ratio MM 1.3 AV Cusp Separation MM 2.1 cm DOPPLER TR Peak Velocity 308.0 cm/s TR Peak Gradient 37.9 mmHg Right Atrial Pressure 10.0 mmHg Pulmonary Artery Systolic Pressu 47.9 mmHg Right Ventricular Systolic Press 47.9 mmHg FINDINGS LEFT VENTRICLE The left ventricular systolic function is low normal with an estimated ejection fraction in the rang e of 50- 55%. Normal left ventricular size. Mild concentric left ventricular hypertrophy. RIGHT VENTRICLE Normal right ventricular size and systolic function. LEFT ATRIUM The left atrial size is normal. RIGHT ATRIUM The right atrial size is normal. ATRIAL SEPTUM Normal atrial septal thickness without atrial level shunting by limited color doppler interrogation. AORTA The aortic root and proximal ascending aorta are normal in size on limited imaging. MITRAL VALVE Bcsic-rr-bmzs mitral valve regurgitation. Structurally normal mitral valve. AORTIC VALVE Trileaflet aortic valve. No aortic valve stenosis or regurgitation. TRICUSPID VALVE There is mild tricuspid valve regurgitation. The estimated pulmonary arterial pressure is 47.9 mmHg. PULMONARY VALVE No pulmonary valve regurgitation or stenosis. VESSELS The inferior vena cava is normal in size. PERICARDIUM No pericardial effusion. Chalo Goldstein MD, FACC (Electronically Signed) Final Date:19 October 2017 11:24
--- NOTE | 2017-10-19 11:46 | MA ---
cc: RUFUS ARNOLD DATE 10/19/2017 INDICATION [id number] IL. PROCEDURE PERFORMED 1. Fluoroscopy with interpretation. 2. Left heart catheterization. 3. Coronary angiography. METHOD The risks, benefits and alternatives were discussed with the patient. The patient understood and consented to the procedure. The patient was brought into the catheterization lab and the placed supine on the catheterization table. The right wrist was prepped and draped in sterile fashion. The right wrist was anesthetized with 2% lidocaine. The right radial artery was cannulated with a 6-Faroese, 7-cm sheath was placed without difficulty. 200 mcg of intraarterial nitroglycerin in addition to 3000 units of intravenous heparin was administered. LEFT HEART CATHETERIZATION Intraoperative hemodynamics measured at 110/3 mmHg. CORONARY ANGIOGRAPHY 1. Left main coronary is angiographically normal. 2. Left anterior descending coronary has 30-40% proximal stenosis. The remainder of the left anterior descending coronary artery and diagonal branches have minor luminal irregularities. 3. Left circumflex gives rise to two obtuse marginal branches; both have minor luminal irregularities. 4. Right coronary is a very large, dominant vessel, gives rise to the posterior descending branch. Mid-distal right coronary has minor luminal irregularities. Estimated severity 30%. CONCLUSIONS 1. Mild nonobstructive coronary disease. 2. Normal left-sided filling pressures. PLAN We will initiate aspirin and statin. Intermediate troponin may be secondary just to demand mediated state. We will follow up on a 2-D echocardiogram. Anticipate discharge and outpatient followup with primary care. MD KEL Arce/ROYA /11:21 AM /11:41 AM
--- NOTE | 2017-10-19 14:25 | HHI.PR ---
Subjective Remarks No further chest pain Pt is very anxious to go home Objective Vitals Vital Signs Date Time Temp Pulse Resp B/P (MAP) Pulse Ox O2 Delivery O2 Flow Rate FiO2 10/19/17 11:31 59 10/19/17 08:39 62 16 130/79 (96) 97 10/19/17 06:00 58 10/19/17 05:00 56 10/19/17 04:00 58 10/19/17 04:00 14 10/19/17 03:00 58 10/19/17 03:00 97.9 62 16 124/69 (87) 97 10/19/17 02:00 58 10/19/17 01:00 56 10/19/17 00:00 58 10/18/17 23:00 57 16 111/68 (82) 97 10/18/17 23:00 56 10/18/17 22:00 60 10/18/17 21:00 64 10/18/17 20:00 62 16 125/74 (91) 57 10/18/17 20:00 66 10/18/17 18:45 98.2 65 18 125/74 (91) 96 10/18/17 16:42 98.3 63 18 145/94 (111) 98 Room Air 10/18/17 15:01 99 18 97 Room Air 10/18/17 14:59 98 Room Air 10/18/17 14:59 71 147/86 (106) 156/92 (113) 10/18/17 14:59 18 98 Room Air 10/19/17 10/19/17 10/20/17 15:00 23:00 07:00 # Voids 1 # Bowel Movements 1 Result Diagram: 10/19/17 0542 10/19/17 0542 Other Results Laboratory Tests Test 10/18/17 14:53 10/18/17 23:20 10/19/17 05:42 White Blood Count 6.4 TH/MM3 6.4 TH/MM3 6.0 TH/MM3 Red Blood Count 4.13 MIL/MM3 4.03 MIL/MM3 3.97 MIL/MM3 Hemoglobin 13.4 GM/DL 12.9 GM/DL 12.7 GM/DL Hematocrit 39.6 % 38.6 % 38.0 % Mean Corpuscular Volume 95.8 FL 95.8 FL 95.9 FL Mean Corpuscular Hemoglobin 32.4 PG 31.9 PG 32.0 PG Mean Corpuscular Hemoglobin Concent 33.8 % 33.3 % 33.4 % Red Cell Distribution Width 13.6 % 13.4 % 13.5 % Platelet Count 188 TH/MM3 192 TH/MM3 173 TH/MM3 Mean Platelet Volume 7.8 FL 7.6 FL 7.6 FL Neutrophils (%) (Auto) 50.3 % 50.3 % Lymphocytes (%) (Auto) 38.4 % 37.8 % Monocytes (%) (Auto) 9.8 % 9.2 % Eosinophils (%) (Auto) 0.9 % 2.1 % Basophils (%) (Auto) 0.6 % 0.6 % Neutrophils # (Auto) 3.2 TH/MM3 3.0 TH/MM3 Lymphocytes # (Auto) 2.4 TH/MM3 2.3 TH/MM3 Monocytes # (Auto) 0.6 TH/MM3 0.6 TH/MM3 Eosinophils # (Auto) 0.1 TH/MM3 0.1 TH/MM3 Basophils # (Auto) 0.0 TH/MM3 0.0 TH/MM3 CBC Comment DIFF FINAL DIFF FINAL Differential Comment Prothrombin Time 11.1 SEC Prothromb Time International Ratio 1.0 RATIO Activated Partial Thromboplast Time 24.3 SEC 28.6 SEC 34.5 SEC D-Dimer Quantitative (PE/DVT) 1.53 MG/L FEU Blood Urea Nitrogen 17 MG/DL 12 MG/DL Creatinine 0.95 MG/DL 0.84 MG/DL Random Glucose 107 MG/DL 117 MG/DL Total Protein 7.2 GM/DL Albumin 3.8 GM/DL Calcium Level 8.9 MG/DL 8.4 MG/DL Alkaline Phosphatase 68 U/L Aspartate Amino Transf (AST/SGOT) 23 U/L Alanine Aminotransferase (ALT/SGPT) 26 U/L Total Bilirubin 0.5 MG/DL Sodium Level 142 MEQ/L 140 MEQ/L Potassium Level 4.6 MEQ/L 3.7 MEQ/L Chloride Level 107 MEQ/L 105 MEQ/L Carbon Dioxide Level 26.3 MEQ/L 24.7 MEQ/L Anion Gap 9 MEQ/L 10 MEQ/L Estimat Glomerular Filtration Rate 84 ML/MIN 96 ML/MIN Total Creatine Kinase 248 U/L 189 U/L 152 U/L Creatine Kinase MB 2.8 NG/ML Troponin I 0.17 NG/ML 0.13 NG/ML 0.12 NG/ML B-Type Natriuretic Peptide 13 PG/ML Lipase 294 U/L Magnesium Level 2.4 MG/DL Triglycerides Level 58 MG/DL Cholesterol Level 194 MG/DL LDL Cholesterol 68 MG/DL HDL Cholesterol 114.5 MG/DL Cholesterol/HDL Ratio 1.69 RATIO Imaging Last Impressions CT Angiography 10/18/17 1546 Signed Impressions: Service Date/Time: Wednesday, October 18, 2017 16:06 - CONCLUSION: No PE is identified. Additionally, no acute finding is identified to explain the clinical symptoms. Ernesto Andrews MD Chest X-Ray 10/18/17 1446 Signed Impressions: Service Date/Time: Wednesday, October 18, 2017 14:52 - CONCLUSION: 1. No acute cardiopulmonary disease. Tejinder Locke MD Objective Remarks General: NAD, AAOx3 Chest: CTA Cardiac: Regular, roberto Abd: +BS, soft ND/NT Ext: no edema Procedures [facility] (10/19/17) : 1. Left main coronary is angiographically normal. 2. Left anterior descending coronary has 30-40% proximal stenosis. The remainder of the left anterior descending coronary artery and diagonal branches have minor luminal irregularities. 3. Left circumflex gives rise to two obtuse marginal branches; both have minor luminal irregularities. 4. Right coronary is a very large, dominant vessel, gives rise to the posterior descending branch. Mid-distal right coronary has minor luminal irregularities. Estimated severity 30%. A/P Problem List: (1) Chest pain ICD Codes: R07.9 - Chest pain, unspecified Plan: - Pt is a 52 y/o male with anxiety, YEN on CPAP, and hx of atrial fibrillation s /p EPS/cryoablation in 2011. - He presented to the ED at [facility] [place] on 10/18/17 with complaints of chest pressure in the left chest with some tingling/numbness in the inside aspect of the LUE that began after his regular 4.5mile morning run. - In the ED the pts troponin was elevated at 0.17. - His EKGs without significant ST changes. - Pts D-dimer was elevated in the ED and CTA was performed but was negative for PE. - He follows with Dr. Wing Morrison and he has had Holter monitors performed annually since his ablation without any evidence of A. fib. - Serial CE were essentially flat, no noted EKG changes - Appreciate Cardiology consultation - Pt had LHC (10/19) --> Mild nonobstructive coronary disease. Normal left- sided filling pressures. - 2D echo (10/19) --> Estimated EF 50- 55%, normal left ventricular size, mild concentric LVH, [id number] mitral valve regurgitation, mild tricuspid valve regurgitation, and estimated PA pressure is 47.9 mmHg. - ASA and statin added per Cardiology - Nitro PRN - FLP (10/19) --> Triglycerides 58, Total cholesterol 194, LDL 68, HDL 114.5 - Xanax PRN - Pt stable for discharge to home. - He will need to followup with his PCP, Dr. Wilkins in 1 week, call for an appt. - Pt will need to followup with Dr. Goldstein in 2 weeks, call for an appt. (2) Elevated troponin ICD Codes: R74.8 - Abnormal levels of other serum enzymes Status: Acute Plan: - See above (3) YEN (obstructive sleep apnea) ICD Codes: G47.33 - Obstructive sleep apnea (adult) (pediatric) Plan: - on CPAP (4) Anxiety ICD Codes: F41.9 - Anxiety disorder, unspecified Plan: - Xanax PRN Problem Qualifiers (1) Chest pain: Qualified Codes: R07.9 - Chest pain, unspecified Abbi Clark Oct 19, 2017 14:25
[2017-10-19] MEDS ORDERED: LIPI40TA PO (15:32)
--- NOTE | 2017-10-19 15:33 | HHI.DCPOC ---
Discharge Care Plan Diagnosis: (1) Anxiety (2) YEN (obstructive sleep apnea) (3) Chest pain (4) Elevated troponin Goals to Promote Your Health * To prevent worsening of your condition and complications * To maintain your health at the optimal level Directions to Meet Your Goals Take your medications as prescribed Follow your dietary instruction Follow activity as directed Keep your appointments as scheduled Take your immunizations and boosters as scheduled If your symptoms worsen call your PCP, if no PCP go to Urgent Care Center or Emergency Room Smoking is Dangerous to Your Health. Avoid second hand smoke Call the 24-hour hour crisis hotline for domestic abuse at Abbi Clark Oct 19, 2017 15:33
[2017-10-19] MEDS ORDERED: ATORVASTATIN 40 MG TAB PO ONE (16:00)
--- NOTE | 2017-10-19 19:27 | EKG ---
Date Performed: 10/18/2017 Time Performed: 14:41:47 PTAGE: 52 years EKG: Sinus rhythm Since previous tracing, no significant change noted NORMAL ECG PREVIOUS TRACING : 10/28/2012 05.24.44 DOCTOR: Williams Jacobo Interpretating Date/Time 10/19/2017 19:26:57
--- NOTE | 2017-10-19 19:29 | EKG ---
Date Performed: 10/18/2017 Time Performed: 22:33:50 PTAGE: 52 years EKG: Sinus rhythm Inferior T wave changes are nonspecific Since previous tracing, no significant change noted Borderli ne ECG PREVIOUS TRACING : 10/18/2017 14.41 DOCTOR: Williams Jacobo Interpretating Date/Time 10/19/2017 19:28:49
--- NOTE | 2017-10-19 19:31 | EKG ---
Date Performed: 10/19/2017 Time Performed: 05:14:30 PTAGE: 52 years EKG: Sinus bradycardia Since PREVIOUS TRACING , no significant change noted Normal ECG except for rate PREVIOUS TRACIN 10/18/2017 22.33 DOCTOR: Williams Jacobo Interpretating Date/Time 10/19/2017 19:30:02
== END 2017-10-19 17:33 | disposition home or self-care (01) | DRG 281 ==
LOC: NEPE 14:20 → NEDA 16:23 → HCIS 18:38
PROVIDERS: ADMIT Hospitalist; ATTEND Hospitalist
PROC: B2111ZZ Fluoroscopy of Multiple Coronary Arteries using Low Osmolar Contrast (ICD-10-PCS; 2017-10-19)
PROC: B2151ZZ Fluoroscopy of Left Heart using Low Osmolar Contrast (ICD-10-PCS; 2017-10-19)
PROC: 4A023N7 Measurement of Cardiac Sampling and Pressure, Left Heart, Percutaneous Approach (ICD-10-PCS; principal; 2017-10-19 10:30)
DX: I21.4 Non-ST elevation (NSTEMI) myocardial infarction (principal); I48.92 Unspecified atrial flutter; I48.91 Unspecified atrial fibrillation; M10.9 Gout, unspecified; G47.33 Obstructive sleep apnea (adult) (pediatric); F41.9 Anxiety disorder, unspecified
CPT/HCPCS: 71010; 71275; 80048; 80053; 80061; 82550; 82552; 83690; 83735; 83880; 84484; 85025; 85027; 85379; 85610; 85730; 93005; 93306; 93458; 99152; C1769; C1893; J1644; J1650; J2250; J3010; J3480; Q9967